=== PATIENT | male | born 1960 | race Caucasian/White ===

== ENCOUNTER 2017-06-30 19:50 | Emergency (ER) | payer OTHER ==
[~2017-06-30] VITALS: Ht 152.4 cm; Wt 55.6 kg
[2017-06-30 20:01] VITALS: Ht 152.4 cm; Wt 55.6 kg
[2017-06-30] MEDS ORDERED: KETOROLAC 30 MG INJ IM STA (20:42)
[2017-06-30] MEDS ORDERED: HYDROCODONE/APAP (5/325) TAB PO ONE (21:00)
[2017-06-30 21:29] LABS: ADD UMIC YES; UR ASCORBIC ACID NEGATIVE (NEGATIVE); UR BILIRUBIN (Dip) NEGATIVE (NEGATIVE); UR BLOOD (Dip) 2+ mg/dL (NEGATIVE); UR CLARITY CLEAR (CLEAR); UR COLOR STRAW (YELLOW); UR GLUCOSE (Dip) NEGATIVE (NEGATIVE); UR KETONES (Dip) NEGATIVE (NEGATIVE); UR LEUKOCYTE ESTERASE (Dip) NEGATIVE Leu/ul (NEGATIVE); UR NITRITE (Dip) NEGATIVE (NEGATIVE); UR RBC 5 /HPF (0-5); UR SPECIFIC GRAVITY (Dip) 1.004 (1.003-1.030); UR TOTAL PROTEIN (Dip) NEGATIVE (NEGATIVE); UR UROBILINOGEN (Dip) NEGATIVE (NEGATIVE)
[2017-06-30] MEDS ORDERED: TRAM50TA2 PO (21:35)
[2017-06-30] MEDS ORDERED: CYCL-319 PO (21:35)
[2017-06-30] MEDS ORDERED: IBUP-1542 PO (21:35)
--- NOTE | 2017-06-30 21:41 | ERD ---
ER Documentation Chief Complaint Chief Complaint BACK PAIN WITH RAD PAIN TO BILAT UPPER THIGHS X 1 WEEK HPI 57-year-old male is here complaining of low back pain for 1 week he states that on the first day he had one episode of dysuria but since then he has not had any dysuria hematuria or frequency. Denies any trauma. Denies any bowel or bladder incontinence or saddle anesthesia. No fever. Has not taken any medications. ROS All systems reviewed and are negative except as per history of present illness. Medications Home Meds Active Scripts Tramadol HCl (Tramadol HCl) 50 Mg Tablet, 50 MG PO Q6, #20 TAB Prov:KIMBERLYN ROME PA-C 06/30/17 Ibuprofen* (Ibuprofen*) 600 Mg Tablet, 600 MG PO Q6, #30 TAB Prov:KIMBERLYN ROME PA-C 06/30/17 Cyclobenzaprine Hcl* (Cyclobenzaprine Hcl*) 10 Mg Tablet, 10 MG PO BID, #20 TAB Prov:KIMBERLYN ROME PA-C 06/30/17 Allergies Allergies: Coded Allergies: No Known Allergy (Unverified , 06/30/17) PMhx/Soc History of Surgery: Yes (right foot) Anesthesia Reaction: No Hx Neurological Disorder: No Hx Cardiac Disorders: No Hx Psychiatric Problems: No Hx Miscellaneous Medical Probl: Yes (HLP, prostate) Hx Alcohol Use: No Hx Substance Use: No Hx Tobacco Use: No Smoking Status: Never smoker FmHx Family History: No diabetes Physical Exam Vitals Vital Signs Date Time Temp Pulse Resp B/P Pulse Ox O2 Delivery O2 Flow Rate FiO2 06/30/17 20:01 97.7 68 20 184/89 100 Physical Exam INITIAL VITAL SIGNS: Reviewed by me GENERAL: Awake, alert and oriented x 4, well appearing, nontoxic, speaking in full sentences. No acute distress HEAD: Atraumatic NECK: Supple. No masses. Full range of motion. No meningismus. No midline tenderness. RESPIRATORY: Clear to auscultation bilaterally. Symmetric chest wall rise. No wheezing or rales. No accessory muscle use. CV: Regular rate and rhythm. No murmurs, rubs, or gallops. ABDOMEN: Soft, non-distended. Nontender. Negative [place]. Negative [place] point tenderness. No CVA tenderness bilaterally. No guarding. No rebound. : Deffered. EXTREMITIES: No clubbing or cyanosis. No edema. Moving all extremities normally. BACK: No midline tenderness to palpation. No step-offs. SKIN: Warm and dry. No rash or petechiae. Results 24 hrs Laboratory Tests Test 06/30/17 20:50 Urine Color STRAW Urine Clarity CLEAR Urine pH 6.0 Urine Specific [place] 1.004 Urine Ketones NEGATIVEmg/dL Urine Nitrite NEGATIVEmg/dL Urine Bilirubin NEGATIVEmg/dL Urine Urobilinogen NEGATIVEmg/dL Urine Leukocyte Esterase NEGATIVELeu/ul Urine Microscopic RBC 5/HPF Urine Microscopic WBC 0/HPF Urine Hemoglobin 2+mg/dL Urine Glucose NEGATIVEmg/dL Urine Total Protein NEGATIVEmg/dl Current Medications Medications (Trade) Dose Ordered Sig/Lucio Route PRN Reason Start Time Stop Time Status Last Admin Dose Admin Ketorolac Tromethamine (Toradol) 30 mg ONCE STAT IM 06/30/17 20:42 06/30/17 20:44 DC 06/30/17 20:48 Acetaminophen/ Hydrocodone Bitart (Keiser (5/325)) 1 tab ONCE ONCE PO 06/30/17 21:00 06/30/17 21:01 DC 06/30/17 20:48 Procedures/MDM Patient presents with back pain. The differential diagnosis includes but is not limited to muscle strain, ligament strain, contusion, arthritis, discogenetic disease, non-musculoskeletal, cauda equina syndrome, cord compression, abscess and others. Blood pressure elevated 184/99 otherwise vital signs are within normal limits. There are no red flags and is well- appearing in no distress. Urine shows no infection. He was given Toradol and Keiser with improvement of his symptoms and he was discharged with ibuprofen and Flexeril and Keiser. Patient counseled regarding my diagnostic impression and care plan. Prior to discharge all questions answered. Pt agrees with treatment plan and understands strict return precautions. Pt is instructed to follow up with primary care provider within 24-48 hours. Precautionary instructions provided including instructions to return to the ER if not improving or for any worsening or changing symptoms or concerns. Departure Diagnosis: Primary Impression: Back pain Condition: Stable Patient Instructions: Back Pain (Acute Or Chronic) Additional Instructions: Llame al doctor MAANA y joel lashaun SEBASTIAN PARA DENTRO DE 1-2 NUÑEZ.Dgale a la secretaria que nosotros le instruimos hacer esta sebastian.Avise o llame si sotelo condicin se empeora antes de la sebastian. Regresa aqui si peor o no mejor. KIMBERLYN ROME PA-C Jun 30, 2017 21:41
== END 2017-06-30 21:42 | disposition home or self-care (01) ==
LOC: FTE 19:50
DX: M54.5 Low back pain (principal)
CPT/HCPCS: 81001; 96372; J1885; Z7502; Z7610

== ENCOUNTER 2017-11-07 15:21 | Emergency (ER) | END 2017-11-07 20:57 | disposition home or self-care (01) ==

== ENCOUNTER 2017-11-09 19:18 | Emergency (ER) | END 2017-11-09 20:56 | disposition home or self-care (01) ==